=== PATIENT | female | born 1940 | race Caucasian/White ===

== ENCOUNTER 2019-06-07 20:57 | Inpatient (IN) | payer MEDICARE ==
[~2019-06-07] VITALS: Ht 160 cm; Wt 70.8 kg
[2019-06-07 21:25] LABS: BASOPHILS % (AUTO) 0.5 % (0.0-5.0); EOSINOPHILS % (AUTO) 2.2 % (0.0-8.0); HEMATOCRIT 37.6 % (36-48); LYMPHOCYTES % (AUTO) 36.6 % (21.0-51.0); MEAN CORPUSCULAR HEMOGLOBIN 29.2 pg (27.0-33.0); MEAN CORPUSCULAR HGB CONC 32.2 g/dL (32.0-36.0); MEAN CORPUSCULAR VOLUME 90.8 fL (79-99); MONOCYTES % (AUTO) 9.2 % (3.0-13.0); NEUTROPHILS % (AUTO) 51.2 % (40.0-77.0); PLATELET COUNT (AUTO) 208 K/uL (130-400); RED BLOOD CELL COUNT(AUTO) 4.14 MIL/uL (4.00-5.50); RED CELL DISTRIBUTION WIDTH 13.2 % (11.0-15.5); WHITE BLOOD COUNT (AUTO) 6.5 K/uL (4.8-10.8)
[2019-06-07 21:40] LABS: POTASSIUM 3.6 mmol/L (3.5-5.1)
[2019-06-07 21:43] LABS: ALBUMIN 3.6 g/dL (3.5-5.0); BILIRUBIN,TOTAL 0.2 mg/dL (0.2-1.0); TOTAL PROTEIN, SERUM 7.2 g/dL (6.0-8.3)
[2019-06-07 22:01] LABS: INR 0.95 (0.85-1.15); PARTIAL THROMBOPLASTIN TIME 24.8 SEC (26.3-35.5)
[2019-06-07] MEDS ORDERED: KETOROLAC TROMETHAMINE 15MG/ML ONE (22:28)
[2019-06-07] MEDS ORDERED: METOPROLOL TARTRATE 1 MG/ML 5ML VIAL IV ONE (22:28)
[2019-06-07 22:53] LABS: APPEARANCE,URINE Clear (CLEAR); BILIRUBIN,URINE Negative (NEGATIVE); COLOR,URINE Yellow (YELLOW); GLUCOSE, URINE (UA) Negative (NEGATIVE); KETONES,URINE 15 mg/dL (NEGATIVE); LEUKOCYTE ESTERASE ,URINE Small (NEGATIVE); NITRATE,URINE Positive (NEGATIVE); OCCULT BLOOD,URINE Small (NEGATIVE); PH,URINE 7.5 (5.0-8.0); PROTEIN,URINE Negative (NEGATIVE); UROBILINOGEN,URINE 0.2 mg/dL (0.2-1.0)
[2019-06-07 23:02] LABS: BACTERIA,URINE Moderate /HPF (None Seen); RBC,URINE 0-1 /HPF (0-1); SQUAMOUS EPITHELIAL CELL,UR Rare /HPF (0-2); WBC,URINE 0-1 /HPF (0-1)
[2019-06-08] VITALS (7 sets, daily range): BP systolic 135–167; BP diastolic 55–84
[2019-06-08] MEDS ORDERED: LACTULOSE 20 GM/30 ML UDCUP PO PRN (00:15)
[2019-06-08] MEDS ORDERED: HYDRALAZINE HCL 20 MG/ML VIAL IV PRN (00:15)
[2019-06-08] MEDS ORDERED: ONDANSETRON HCL 4 MG/2 ML VIAL IV PRN (00:15)
[2019-06-08] MEDS ORDERED: ACETAMINOPHEN 325 MG TAB PO PRN ×2 (00:15)
[2019-06-08] MEDS ORDERED: CEFTRIAXONE SODIUM 1 GM ONE (00:41)
--- NOTE | 2019-06-08 01:40 | NUR ---
PATIENT RECEIVED FROM ER WITH A DIAGNOSIS OF A LEFT HIP FRACTURE, S/P FALL INJURY, AND ACUTE UTI UNDER THE CARE OF . PATIENT AWAKE AND ALERT. VOICES ALL NEEDS. NO COMPLAINTS OF PAIN VOICED AT THIS TIME. VITALS STABLE. AFEBRILE. RESP EVEN AND UNLABORED. NO SOB NOTED. ON ROOM AIR. 18 FR WANG CATHETER PATENT AND DRAINING CLEAR PALE YELLOW URINE TO BSD. DUPLEX TRIMMER ON. NORMAL SINUS RHYTHM. HEAD TO TOE ASSESSMENT DONE. SPOUSE AT BEDSIDE. BEDREST. FALL PRECAUTIONS IN PLACE DUE TO POOR SAFETY AWARENESS. CALL LIGHT WITHIN REACH. WILL CONTINUE TO MONITOR. Addendum: 06/08/19 at 0657 by EUGENE BARTH RN RN Amended: Links added.
[2019-06-08] MEDS ORDERED: BUSP15TA3 PO (01:54)
[2019-06-08] MEDS ORDERED: CETI-109 PO (01:54)
[2019-06-08] MEDS ORDERED: ATEN25TA PO (01:54)
[2019-06-08] MEDS ORDERED: ALPR0.5T PO (01:54)
[2019-06-08] MEDS: KETOROLAC TROMETHAMINE 30MG/ML IV PRN ×2 (05:59→14:31)
[2019-06-08] MEDS ORDERED: LABETALOL 20 MG/4 ML DISP.SYRIN IV PRN (09:15)
[2019-06-08] MEDS: CETIRIZINE HCL 5 MG TABLET PO SCH (10:34)
[2019-06-08] MEDS: ATENOLOL 25 MG TABLET PO SCH ×2 (10:34→20:04)
[2019-06-08] MEDS: BUSPIRONE HCL 5 MG TABLET PO SCH ×2 (10:34→20:03)
[2019-06-08] MEDS: FAMOTIDINE 20MG TAB 20 MG TAB PO SCH (10:34)
--- NOTE | 2019-06-08 10:40 | NUR ---
CM NOTE- DC PLANNING Met w patient and spouse Wolf for dc planning. face sheet verified - corrections made/faxed patient and lisandro are from [facility] near [place], returning end of July. They live in [facility], home has 3 steps up to home- pt states she is independent, active, drives occaisionally, and uses no mobility aids. Pt with fractured hip, "may need a replacement' as per patient, Advised both re recommendations for rehab post procedure. [facility] would be first choice;tagged chart. Will [place] back and revisit after surgery. Addendum: 06/08/19 at 1347 by FAITH BELLO RN CM Amended: Links added.
[2019-06-08] MEDS: CEFTRIAXONE SODIUM 1 GM IVP SCH (12:12)
[2019-06-08] MEDS ORDERED: ALPRAZOLAM 0.5 MG TABLET PO PRN (12:45)
[2019-06-08] MEDS ORDERED: PHARMACY COMMUNICATION MISC SCH (13:15)
[2019-06-08] MEDS: MORPHINE SULFATE 2 MG/ML 1ML SYG IVP PRN ×2 (15:22→20:06)
[2019-06-08] MEDS ORDERED: ENOXAPARIN SODIUM 30 MG/0.3 ML SQ SCH (19:45)
--- NOTE | 2019-06-08 20:00 | NUR ---
ROUNDS PATIENT AWAKE AND ALERT IN BED WATCHING TV WITH SPOUSE AT BEDSIDE. MEDICATED FOR COMPLAINTS OF PAIN VOICED AT THIS TIME TO LEFT HIP. PATIENT STATES SHE WANTS TO BE MEDICATED SO HER PAIN DOES NOT GET WORSE. RESP EVEN AND UNLABORED. NO SOB NOTED. ON ROOM AIR. TOLERATING PO DIET WELL. NO NAUSEA OR VOMITING NOTED. BEDREST. FALL PRECAUTIONS IN PLACE. INITIAL DOSE OF LOVENOX GIVEN. PATIENT VERBALIZED UNDERSTANDING OF MEDICATION GIVEN. WANG PATENT AND DRAINING CLEAR PALE YELLOW URINE. NO SIGNS OF DISTRESS NOTED. CALL LIGHT WITHIN REACH. WILL CONTINUE TO MONITOR. Addendum: 06/09/19 at 0051 by EUGENE BARTH RN RN Amended: Links added.
[2019-06-09] VITALS (25 sets, daily range): BP systolic 103–151; BP diastolic 34–73
[2019-06-09] MEDS: CEFTRIAXONE SODIUM 1 GM IVP SCH ×3 (01:41→13:08)
[2019-06-09] MEDS: MORPHINE SULFATE 2 MG/ML 1ML SYG IVP PRN ×2 (02:06→15:48)
[2019-06-09] MEDS ORDERED: TRANEXAMIC ACID 1000MG/10ML IV PRN (05:00)
[2019-06-09 06:15] LABS: BASOPHILS % (AUTO) 0.3 % (0.0-5.0); EOSINOPHILS % (AUTO) 1.9 % (0.0-8.0); LYMPHOCYTES % (AUTO) 24.2 % (21.0-51.0); MEAN CORPUSCULAR HEMOGLOBIN 29.2 pg (27.0-33.0); MEAN CORPUSCULAR HGB CONC 33.1 g/dL (32.0-36.0); MEAN CORPUSCULAR VOLUME 88.2 fL (79-99); MONOCYTES % (AUTO) 8.3 % (3.0-13.0); PLATELET COUNT (AUTO) 201 K/uL (130-400); RED BLOOD CELL COUNT(AUTO) 3.97 MIL/uL (4.00-5.50); WHITE BLOOD COUNT (AUTO) 6.2 K/uL (4.8-10.8)
[2019-06-09 06:35] LABS: ALBUMIN 2.9 g/dL (3.5-5.0); BILIRUBIN,TOTAL 0.5 mg/dL (0.2-1.0); CREATININE 0.8 mg/dL (0.5-1.5); POTASSIUM 3.2 mmol/L (3.5-5.1); THYROID STIMULATING HORMONE 10.59 uIU/mL (0.36-3.74); TOTAL PROTEIN, SERUM 6.3 g/dL (6.0-8.3)
[2019-06-09] MEDS ORDERED: D5 NS WITH 20 mEq KCl 1000ML 1,000 ML IV SCH (08:30)
[2019-06-09] MEDS: ATENOLOL 25 MG TABLET PO SCH ×2 (09:00→20:04)
[2019-06-09] MEDS: FAMOTIDINE 20MG TAB 20 MG TAB PO SCH ×2 (09:00→20:04)
[2019-06-09] MEDS: CETIRIZINE HCL 5 MG TABLET PO SCH (09:00)
[2019-06-09] MEDS ORDERED: D5 NS WITH 20 mEq KCl 1000ML IV ONE (09:00)
[2019-06-09] MEDS: BUSPIRONE HCL 5 MG TABLET PO SCH ×2 (09:00→20:04)
--- NOTE | 2019-06-09 09:10 | NUR ---
TRANSFERRED TO [facility] FOR SURGERY BY MARY KENDALL AND TECH PT IN NO DISTRESS, RESP EVEN, UNLABORED. REMOVED DENTURES AND GLASSES, LEFT AT BEDSIDE. ACCOMPANIED PT.
--- NOTE | 2019-06-09 09:19 | NUR ---
RE: [facility] IVPBs ORDERED - CALLED AND NOTIFIED ENOCH HERNANDEZ and notified of Ancef and Tranexamic Acid production honing machine operator IVPB pending to give as orderd. MARY VERBALIZED UNDERSTANDING.
[2019-06-09] MEDS ORDERED: LACTATED RINGERS 1000ML 1,000 ML IV ONE (09:25)
[2019-06-09] MEDS ORDERED: TRANEXAMIC ACID 1000MG/10ML ONE ×2 (09:39→14:12)
[2019-06-09] MEDS ORDERED: CEFAZOLIN SODIUM 1 GM VIAL ONE (09:39)
[2019-06-09] MEDS: CEFAZOLIN SODIUM 1 GM VIAL IVP PRN ×2 (09:56→11:57)
[2019-06-09] MEDS ORDERED: SUCCINYLCHOLINE 200MG/10ML SYR ONE (10:30)
[2019-06-09] MEDS ORDERED: LIDOCAINE PF 2% 5ML ABBOJECT ONE (10:30)
[2019-06-09] MEDS ORDERED: FENTANYL CITRATE PF 50 MCG/1 ML 2ML VIAL ONE ×2 (10:31→12:17)
[2019-06-09] MEDS ORDERED: ONDANSETRON HCL 4 MG/2 ML VIAL ONE (10:31)
[2019-06-09] MEDS ORDERED: DEXAMETHASONE SOD PHOSPHATE 10MG/ML 1ML VIAL ONE (10:31)
[2019-06-09] MEDS ORDERED: PROPOFOL 10 MG/ML 20ML VIAL IV ONE (10:31)
[2019-06-09] MEDS ORDERED: NEOSTIGMINE 5MG/5ML SYR IV ONE (10:31)
[2019-06-09] MEDS ORDERED: GLYCOPYRROLATE 1 MG/5 ML SYRINGE ONE (10:31)
[2019-06-09] MEDS ORDERED: MIDAZOLAM HCL 1 MG/ML 2ML VIAL ONE (10:31)
[2019-06-09] MEDS ORDERED: EPHEDRINE SULFATE 50 MG/ML AMPULE ONE (11:25)
[2019-06-09] MEDS ORDERED: ROCURONIUM 10MG/1ML SYR 10 MG/ML ML ONE (12:17)
[2019-06-09] MEDS ORDERED: CEFAZOLIN SODIUM 1 GM VIAL IRRIG ONE (12:18)
[2019-06-09] MEDS ORDERED: MEPERIDINE-PF 25 MG/ML SYG ONE ×2 (14:18→14:29)
[2019-06-09] MEDS: SODIUM CHLORIDE 0.9% 1000ML 1,000 ML IV SCH ×2 (14:31→23:14)
[2019-06-09] MEDS ORDERED: ONDANSETRON HCL 4 MG/2 ML VIAL IVP PRN (14:45)
[2019-06-09] MEDS ORDERED: TRAMADOL HCL 50 MG TABLET PO PRN (14:45)
[2019-06-09] MEDS ORDERED: TEMAZEPAM 15 MG CAPSULE PO PRN (14:45)
[2019-06-09] MEDS ORDERED: DiphenhydrAMINE HCL 50 MG/ML VIAL IVP PRN (14:45)
[2019-06-09] MEDS ORDERED: OXYCODONE HCL 5 MG TAB PO PRN (14:45)
[2019-06-09] MEDS ORDERED: KETOROLAC TROMETHAMINE 15MG/ML IV PRN (14:45)
[2019-06-09] MEDS ORDERED: POTASSIUM CHLORIDE 20MEQ/100ML 100 ML IV PRN ×2 (14:45→15:00)
[2019-06-09] MEDS ORDERED: FERROUS FUMARATE 324 MG TABLET PO PRN (14:45)
[2019-06-09] MEDS ORDERED: POTASSIUM CHLORIDE 10% ELIXIR 20 MEQ/15 ML UDCUP PO PRN ×2 (14:45→15:00)
[2019-06-09] MEDS ORDERED: LIDOCAINE HCL-MPF 1% 2ML VIAL IV PRN ×3 (14:45→15:00)
[2019-06-09] MEDS ORDERED: POTASSIUM CHLORIDE 20 MEQ ERTAB PO PRN (15:00)
[2019-06-09] MEDS ORDERED: POTASSIUM CHLORIDE 10MEQ/100ML 100 ML IV PRN (15:00)
[2019-06-09] MEDS: POTASSIUM CHLORIDE 20 MEQ ERTAB PO PRN ×2 (15:49→23:16)
[2019-06-09] MEDS: ACETAMINOPHEN EXTRA STRENGTH 500 MG TABLET PO SCH ×2 (15:57→23:14)
[2019-06-09] MEDS: CEFAZOLIN SODIUM 1 GM VIAL IVP SCH (20:04)
[2019-06-09] MEDS: PREGABALIN 25 MG CAP PO SCH (20:04)
[2019-06-09] MEDS: CELECOXIB 200 MG CAP PO SCH (20:04)
[2019-06-09] MEDS: ASPIRIN 81MG TAB.CHEW PO SCH (20:07)
[2019-06-10 04:00] VITALS: BP 125/62
[2019-06-10] MEDS: CEFAZOLIN SODIUM 1 GM VIAL IVP SCH (04:05)
[2019-06-10 05:08] LABS: HEMATOCRIT 31.2 % (36-48); MEAN CORPUSCULAR HEMOGLOBIN 29.3 pg (27.0-33.0); MEAN CORPUSCULAR VOLUME 88.9 fL (79-99); PLATELET COUNT (AUTO) 174 K/uL (130-400); RED BLOOD CELL COUNT(AUTO) 3.51 MIL/uL (4.00-5.50); RED CELL DISTRIBUTION WIDTH 13.1 % (11.0-15.5); WHITE BLOOD COUNT (AUTO) 8.7 K/uL (4.8-10.8)
[2019-06-10 05:14] LABS: CREATININE 0.7 mg/dL (0.5-1.5); POTASSIUM 4.4 mmol/L (3.5-5.1)
[2019-06-10] MEDS: LEVOTHYROXINE 25 MCG TABLET PO SCH (06:28)
[2019-06-10] MEDS: ACETAMINOPHEN EXTRA STRENGTH 500 MG TABLET PO SCH ×3 (06:29→22:47)
[2019-06-10 07:30] VITALS: BP 133/59
[2019-06-10] MEDS: ASPIRIN 81MG TAB.CHEW PO SCH ×2 (08:40→19:44)
[2019-06-10] MEDS: OXYCODONE HCL 5 MG TAB PO PRN ×2 (08:42→13:06)
[2019-06-10] MEDS: PREGABALIN 25 MG CAP PO SCH ×2 (08:42→19:44)
[2019-06-10] MEDS: BUSPIRONE HCL 5 MG TABLET PO SCH ×2 (08:43→19:45)
[2019-06-10] MEDS: CELECOXIB 200 MG CAP PO SCH ×2 (08:43→19:44)
[2019-06-10] MEDS: FAMOTIDINE 20MG TAB 20 MG TAB PO SCH ×3 (08:43→19:44)
[2019-06-10] MEDS: POLYETHYLENE GLYCOL 3350 17 GM POWD.PACK PO SCH (08:43)
[2019-06-10] MEDS: ATENOLOL 25 MG TABLET PO SCH ×2 (08:43→21:00)
[2019-06-10] MEDS: CETIRIZINE HCL 5 MG TABLET PO SCH (08:43)
[2019-06-10] MEDS: SODIUM CHLORIDE 0.9% 1000ML 1,000 ML IV SCH (10:31)
[2019-06-10 11:00] VITALS: BP 92/48
[2019-06-10] MEDS: CALCIUM CARBONATE 500 MG TABLET PO PRN ×3 (12:29→23:14)
[2019-06-10] MEDS: CEFTRIAXONE SODIUM 1 GM IVP SCH ×2 (12:29→23:14)
[2019-06-10 16:00] VITALS: BP 127/30
[2019-06-10 19:43] VITALS: BP 135/63
[2019-06-10 23:42] VITALS: BP 120/54
[2019-06-11 04:00] VITALS: BP 146/66
[2019-06-11] MEDS: ACETAMINOPHEN EXTRA STRENGTH 500 MG TABLET PO SCH ×2 (05:56→13:58)
[2019-06-11] MEDS: LEVOTHYROXINE 25 MCG TABLET PO SCH (05:56)
[2019-06-11 06:00] LABS: BASOPHILS % (AUTO) 0.3 % (0.0-5.0); EOSINOPHILS % (AUTO) 4.4 % (0.0-8.0); HEMATOCRIT 28.5 % (36-48); LYMPHOCYTES % (AUTO) 19.9 % (21.0-51.0); MEAN CORPUSCULAR HGB CONC 32.3 g/dL (32.0-36.0); MEAN CORPUSCULAR VOLUME 89.9 fL (79-99); MONOCYTES % (AUTO) 8.6 % (3.0-13.0); NEUTROPHILS % (AUTO) 66.4 % (40.0-77.0); PLATELET COUNT (AUTO) 153 K/uL (130-400); RED BLOOD CELL COUNT(AUTO) 3.17 MIL/uL (4.00-5.50); RED CELL DISTRIBUTION WIDTH 13.2 % (11.0-15.5)
[2019-06-11 08:00] VITALS: BP 128/56
--- NOTE | 2019-06-11 08:49 | NUR ---
ACCETPED AT [facility] IN CHART NEEDS SIGNING BY HOUSE. EMS FORM NEEDS FAXING PRIMARY RN AWARE
[2019-06-11] MEDS: ATENOLOL 25 MG TABLET PO SCH (09:00)
[2019-06-11] MEDS: FAMOTIDINE 20MG TAB 20 MG TAB PO SCH ×2 (09:00→09:09)
[2019-06-11] MEDS: PREGABALIN 25 MG CAP PO SCH (09:07)
[2019-06-11] MEDS: CELECOXIB 200 MG CAP PO SCH (09:07)
[2019-06-11] MEDS: ASPIRIN 81MG TAB.CHEW PO SCH (09:08)
[2019-06-11] MEDS: CETIRIZINE HCL 5 MG TABLET PO SCH (09:08)
[2019-06-11] MEDS: CALCIUM CARBONATE 500 MG TABLET PO PRN (09:08)
[2019-06-11] MEDS: BUSPIRONE HCL 5 MG TABLET PO SCH (09:08)
[2019-06-11] MEDS: POLYETHYLENE GLYCOL 3350 17 GM POWD.PACK PO SCH (09:09)
[2019-06-11] MEDS: CEFTRIAXONE SODIUM 1 GM IVP SCH (10:41)
[2019-06-11 11:00] VITALS: BP 117/67
[2019-06-11] MEDS ORDERED: LEVO25TA9 PO (14:44)
--- NOTE | 2019-06-11 15:40 | NUR ---
ATTEMPTED TO GIVE REPORT TO [facility]. CALL BACK NUMBER PROVIDED.
[2019-06-11 16:00] VITALS: BP 138/74
--- NOTE | 2019-06-11 16:06 | NUR ---
DISCHARGE PATIENT GIVEN DISCHARGE INSTRUCTIONS AND EDUCATION ON FOLLOW UP APPOINTMENTS, [facility], WBAT, RX ASPIRIN, TORADOL. PATIENT VERBALIZED UNDERSTANDING OF ALL EDUCATION GIVEN VIA TEACH BACK, REFERENCE MATERIAL PROVIDED. SEAN DRESSING CHANGED, SEAL INTACT, NO LEAK, NEGATIVE PRESSURE ACTIVE. IV DISCONTINUED CATHETER INTACT. NO DISTRESS NOTED UPON DISCHARGE, PATIENT LEFT VIA EMS. REPORT GIVEN TO DAI VALENZUELA RN ON FOLLOW UP APPOINTMENTS, [facility] AND REMOVAL ON 06/16/19, WBAT, RX ASPIRIN, TORADOL.
[2019-06-12] MEDS ORDERED: BISACODYL 10 MG SUPP.RECT RC PRN (14:45)
== END 2019-06-11 17:52 | DRG 470 ==
LOC: EDH 20:57 → EDHIP 06-08 00:04 → 4AH 06-08 00:45
PROVIDERS: ADMIT Internal Medicine; ATTEND Internal Medicine
PROC: 0SRS0J9 Replacement of Left Hip Joint, Femoral Surface with Synthetic Substitute, Cemented, Open Approach (ICD-10-PCS; principal; 2019-06-09 10:59)
PROC: 3E0T3BZ Introduction of Anesthetic Agent into Peripheral Nerves and Plexi, Percutaneous Approach (ICD-10-PCS; 2019-06-09 10:59)
DX: S72.002A Fracture of unspecified part of neck of left femur, initial encounter for closed fracture (principal); N39.0 Urinary tract infection, site not specified; Z16.23 Resistance to quinolones and fluoroquinolones; R55 Syncope and collapse; F41.1 Generalized anxiety disorder; B96.20 Unspecified Escherichia coli [E. coli] as the cause of diseases classified elsewhere; E66.9 Obesity, unspecified; E03.9 Hypothyroidism, unspecified; I10 Essential (primary) hypertension; W18.30XA Fall on same level, unspecified, initial encounter; Z53.20 Procedure and treatment not carried out because of patient's decision for unspecified reasons; Y92.89 Other specified places as the place of occurrence of the external cause; Y99.8 Other external cause status; Z79.899 Other long term (current) drug therapy; Y93.89 Activity, other specified; Z88.1 Allergy status to other antibiotic agents; Z68.27 Body mass index [BMI] 27.0-27.9, adult
CPT/HCPCS: 36415; 71045; 73502; 73503; 80048; 80053; 81001; 82550; 84443; 84484; 85025; 85027; 85610; 85730; 86850; 86900; 86901; 87077; 87088; 87186; 88304; 88311; 93005; 97039; C1776; G0378; J0330; J0360; J0690; J0696; J1100; J1650; J1885; J2001; J2175; J2250; J2405; J2704; J2710; J3010; J3480; J3490; J7120